=== PATIENT | male | born 1980 | race Caucasian/White ===

== ENCOUNTER 2023-04-08 07:59 | Emergency (ER) | payer SELFPAY ==
[2023-04-08 08:17] VITALS: BP 128/78; PULSE 91; RESP 18; TEMP 98.6; BMI 25.5
[2023-04-08] MEDS ORDERED: BACITRACIN 0.9 GM PACKET TP ONE (11:03)
== END 2023-04-08 11:14 | disposition home or self-care (01) ==
LOC: JER 07:59 → JERFT 07:59
PROC: 0J9Q0ZZ Drainage of Right Foot Subcutaneous Tissue and Fascia, Open Approach (ICD-10-PCS; principal; 2023-04-08)
DX: M79.674 Pain in right toe(s) (principal); L60.0 Ingrowing nail
CPT/HCPCS: 99283-25